=== PATIENT | female | born 1975 | race African-American/Black ===

== ENCOUNTER 2024-05-04 16:14 | Emergency (ER) | payer OTHER, MEDICAID ==
[~2024-05-04] VITALS: Ht 160 cm; Wt 59.0 kg
[~2024-05-04 16:14] MED LIST: ZOLP10TA2 PO
[2024-05-04 16:33] VITALS: BP_SYST 155; PULSE 79; RESP 22; TEMP 98.3; O2SAT 98
== END 2024-05-04 17:08 | disposition left against medical advice (07) ==
LOC: SED 16:14
DX: M54.9 Dorsalgia, unspecified (principal); R20.2 Paresthesia of skin; Z53.21 Procedure and treatment not carried out due to patient leaving prior to being seen by health care provider